=== PATIENT | female | born 1975 | race Caucasian/White ===

== ENCOUNTER 2022-01-29 13:27 | Emergency (ER) | payer MEDICAID ==
[~2022-01-29] VITALS: Ht 162.6 cm; Wt 87.1 kg
[~2022-01-29 13:27] MED LIST: ATEN50TA PO; ENAL2.5T7 PO; GABA300C10 PO
[2022-01-29] MEDS ORDERED: LORazepam 2MG/ML-1ML VIAL IV ONE (13:45)
[2022-01-29] MEDS ORDERED: SODIUM CHLORIDE 0.9% 1,000 ML IV ONE (13:45)
[2022-01-29 13:49] VITALS: BP 114/84
[2022-01-29 14:11] LABS: Basophils # (auto) 0 10 ^3/uL (0-0.2); Basophils % (auto) 0.5 % (0.0-2.0); Eosinophils # (auto) 0.1 10 ^3/uL (0-0.8); Eosinophils % (auto) 1.4 % (0.0-7.0); Hematocrit 39.4 % (36.0-46.0); Lymphocytes % (auto) 17.7 % (10.0-50.0); Mean Corpuscular Hemoglobin 28.3 pg (28.0-32.0); Mean Corpuscular Hgb Conc. 32.9 g/dL (32.0-36.0); Mean Corpuscular Volume 85.9 fL (80.0-100.0); Monocytes # (auto) 0.4 10 ^3/uL (0-1.3); Monocytes % (auto) 6.1 % (0.0-12.0); Neutrophils # (auto) 4.4 10 ^3/uL (1.6-8.6); Neutrophils % (auto) 74.3 % (37.0-80.0); Nucleated Red Blood Cells % 0.2 %; Red Blood Cells 4.59 10^6/uL (4.0-5.20); Red Cell Distribution Width 14.5 % (11.8-14.3); White Blood Cell 5.9 10^3/uL (4.4-10.8)
[2022-01-29 14:28] LABS: Albumin 3.3 g/dL (3.4-5.0); BUN/Creatinine Ratio 12.7; Magnesium 2.2 mg/dL (1.6-2.6); Potassium 3.6 mmol/L (3.5-5.1)
[2022-01-29 14:30] LABS: Bilirubin, Total 0.3 mg/dL (0.2-1.0); Total Protein 6.7 g/dL (6.4-8.2)
[2022-01-29 15:39] LABS: Urine Bacteria FEW /hpf (None Seen); Urine Blood Negative /uL (Negative); Urine Specific Gravity 1.004 (1.001-1.035); Urine WBC 1 /hpf (0 - 5)
[2022-01-29] MEDS ORDERED: IOHEXOL 300 MG/ML 100ML BOTTLE IJ ONE (15:45)
[2022-01-29] MEDS ORDERED: HYDR-4902 PO (17:08)
== END 2022-01-29 19:37 | disposition home or self-care (01) ==
LOC: ER 13:27 → EDBD 13:27 → ER 19:37
DX: N20.0 Calculus of kidney (principal); R42 Dizziness and giddiness; I10 Essential (primary) hypertension; F17.210 Nicotine dependence, cigarettes, uncomplicated; Z79.899 Other long term (current) drug therapy; Z88.8 Allergy status to other drugs, medicaments and biological substances
CPT/HCPCS: 36415; 74177; 80053; 81001; 83690; 83735; 84484; 84702; 85025; 93005; 96360; 99285; J7030; Q9967

== ENCOUNTER 2022-02-08 22:51 | Emergency (ER) | payer MEDICAID ==
[~2022-02-08] VITALS: Ht 165.1 cm; Wt 86.2 kg
[~2022-02-08 22:51] MED LIST changes: +HYDR-4902 PO
[2022-02-09 07:10] VITALS: BP 112/74
== END 2022-02-09 08:33 | disposition home or self-care (01) ==
LOC: ER 22:51 → EDBD 22:51 → ER 02-09 08:15
DX: F31.9 Bipolar disorder, unspecified (principal); F41.9 Anxiety disorder, unspecified; I10 Essential (primary) hypertension; F17.210 Nicotine dependence, cigarettes, uncomplicated; Z79.899 Other long term (current) drug therapy; Z88.8 Allergy status to other drugs, medicaments and biological substances

== ENCOUNTER 2022-11-03 11:27 | Inpatient (IN) | payer MEDICAID ==
[~2022-11-03] VITALS: Ht 162.6 cm; Wt 68.0 kg
[2022-11-03] MEDS ORDERED: SODIUM CHLORIDE 0.9% 1,000 ML IV ONE (12:00)
[2022-11-03 12:38] LABS: Albumin 3.3 g/dL (3.4-5.0); Calcium 8.3 mg/dL (8.5-10.1); Magnesium 1.9 mg/dL (1.6-2.6); Potassium 4.3 mmol/L (3.5-5.1)
[2022-11-03 12:41] LABS: BUN/Creatinine Ratio 12.6; Bilirubin, Total 0.9 mg/dL (0.2-1.0); Total Protein 6.2 g/dL (6.4-8.2)
[2022-11-03 12:47] LABS: Basophils # (auto) 0 10 ^3/uL (0-0.2); Eosinophils # (auto) 0 10 ^3/uL (0-0.8); Hematocrit 39.5 % (36.0-46.0); Hemoglobin 13.2 g/dL (12.2-16.2); Lymphocytes # (auto) 0.4 10 ^3/uL (0.4-5.4); Lymphocytes % (auto) 1.8 % (10.0-50.0); Mean Corpuscular Hemoglobin 28.5 pg (28.0-32.0); Mean Corpuscular Hgb Conc. 33.4 g/dL (32.0-36.0); Mean Corpuscular Volume 85.4 fL (80.0-100.0); Monocytes # (auto) 1.3 10 ^3/uL (0-1.3); Monocytes % (auto) 6.7 % (0.0-12.0); Neutrophils # (auto) 18.5 10 ^3/uL (1.6-8.6); Neutrophils % (auto) 91.5 % (37.0-80.0); Red Blood Cells 4.63 10^6/uL (4.0-5.20); Red Cell Distribution Width 14.8 % (11.8-14.3); White Blood Cell 20.2 10^3/uL (4.4-10.8)
[2022-11-03] MEDS ORDERED: PIPERACILLIN-TAZOB 3.375GM 100 ML IV ONE (16:00)
[2022-11-03] MEDS ORDERED: MORPHINE SULFATE INJ 2 MG/ml SYRG IV PRN (19:00)
[2022-11-03] MEDS ORDERED: VANCOMYCIN PER PHARMACY 0 MG IV SCH (19:00)
[2022-11-03] MEDS ORDERED: LORazepam 0.5 MG TAB PO PRN (19:00)
[2022-11-03] MEDS: SODIUM CHLORIDE 0.9% 1,000 ML IV SCH (19:00)
[2022-11-03] MEDS ORDERED: ACETAMINOPHEN 325 MG TAB PO PRN (19:00)
[2022-11-03] MEDS ORDERED: VANCOMYCIN 1GM/250ML 250 ML IV SCH (19:00)
[2022-11-03] MEDS ORDERED: TEMAZEPAM 15 MG CAP PO PRN (19:00)
[2022-11-03] MEDS ORDERED: MAALOX PLUS or MAALOX 30 ML PO PRN (19:00)
[2022-11-03] MEDS ORDERED: ONDANSETRON HCL 4 MG/2 ML VIAL IV PRN (19:00)
[2022-11-03] MEDS ORDERED: DOCUSATE SOD 100 MG CAP PO PRN (19:00)
[2022-11-03] MEDS ORDERED: VANCOMYCIN 1GM/250ML 250 ML IV ONE (21:45)
[2022-11-03] MEDS: PIPERACILLIN-TAZOB 3.375GM 100 ML IV SCH (22:00)
[2022-11-03] MEDS: IPRATROPIUM BROM 0.5 MG/2.5ML INH SOL NEB SCH (22:08)
[2022-11-03] MEDS: ALBUTEROL MEDNEB 2.5 mg/3ml NEB NEB SCH (22:08)
[2022-11-03] MEDS: HYDROcodone-ACET 5/325MG TAB PO PRN (22:32)
[2022-11-03 22:45] VITALS: BP 92/57
[2022-11-04] MEDS ORDERED: NICOTINE 14 MG/24HR TOPICAL PATCH TD ONE (02:30)
[2022-11-04] MEDS: PIPERACILLIN-TAZOB 3.375GM 100 ML IV SCH ×2 (06:26→14:25)
[2022-11-04] MEDS: IPRATROPIUM BROM 0.5 MG/2.5ML INH SOL NEB SCH ×4 (07:17→18:03)
[2022-11-04] MEDS: ALBUTEROL MEDNEB 2.5 mg/3ml NEB NEB SCH ×4 (07:17→18:03)
[2022-11-04 07:20] LABS: BUN/Creatinine Ratio 24.2; Calcium 8.1 mg/dL (8.5-10.1); Potassium 3.9 mmol/L (3.5-5.1)
[2022-11-04 08:25] LABS: Basophils # (auto) 0 10 ^3/uL (0-0.2); Basophils % (auto) 0.1 % (0.0-2.0); Eosinophils # (auto) 0 10 ^3/uL (0-0.8); Eosinophils % (auto) 0.2 % (0.0-7.0); Hematocrit 36.6 % (36.0-46.0); Hemoglobin 12.4 g/dL (12.2-16.2); Lymphocytes # (auto) 1.4 10 ^3/uL (0.4-5.4); Lymphocytes % (auto) 7.8 % (10.0-50.0); Mean Corpuscular Hemoglobin 28.5 pg (28.0-32.0); Mean Corpuscular Hgb Conc. 33.7 g/dL (32.0-36.0); Mean Corpuscular Volume 84.6 fL (80.0-100.0); Monocytes # (auto) 1.4 10 ^3/uL (0-1.3); Monocytes % (auto) 7.8 % (0.0-12.0); Neutrophils # (auto) 15.4 10 ^3/uL (1.6-8.6); Neutrophils % (auto) 84.1 % (37.0-80.0); Red Blood Cells 4.33 10^6/uL (4.0-5.20); Red Cell Distribution Width 14.9 % (11.8-14.3); White Blood Cell 18.3 10^3/uL (4.4-10.8)
[2022-11-04] MEDS ORDERED: VANCOMYCIN 1GM/250ML 250 ML IV ONE (08:45)
[2022-11-04] MEDS: HYDROcodone-ACET 5/325MG TAB PO PRN (09:15)
[2022-11-04 09:23] VITALS: BP 100/62
[2022-11-04] MEDS ORDERED: IBUP800T27 PO (09:49)
[2022-11-04] MEDS ORDERED: SERT25TA84 PO (09:49)
[2022-11-04] MEDS ORDERED: ALPR0.5T PO (09:49)
[2022-11-04] MEDS ORDERED: NICOTINE 14 MG/24HR TOPICAL PATCH TD SCH (10:00)
[2022-11-04] MEDS: SODIUM CHLORIDE 0.9% 1,000 ML IV SCH (11:40)
[2022-11-04 13:00] VITALS: BP 93/56
[2022-11-04] MEDS ORDERED: guaiFENesin-DM 100/10mg/5ml SYR PO PRN (16:30)
[2022-11-04] MEDS ORDERED: LEVO500T31 PO (16:32)
[2022-11-04] MEDS ORDERED: DEXT1SYP9 PO (16:32)
[2022-11-04] MEDS ORDERED: levoFLOXacin 500 MG TAB PO SCH (16:45)
[2022-11-04 17:00] VITALS: BP 96/62
[2022-11-04 17:53] VITALS: BP 99/69
[2022-11-04] MEDS ORDERED: VANCOMYCIN 1GM/250ML 250 ML IV SCH (21:00)
== END 2022-11-04 19:00 | disposition home or self-care (01) | DRG 139 ==
LOC: ER 11:27 → EDBD 11:27 → TELE 19:25 → TELE-WESTW 11-04 08:18
PROVIDERS: ADMIT Hospitalist; ATTEND Internal Medicine
DX: J18.9 Pneumonia, unspecified organism (principal); F17.210 Nicotine dependence, cigarettes, uncomplicated; F20.9 Schizophrenia, unspecified; I10 Essential (primary) hypertension; I48.91 Unspecified atrial fibrillation; F32.A Depression, unspecified; Z20.822 Contact with and (suspected) exposure to COVID-19; F41.9 Anxiety disorder, unspecified; F19.10 Other psychoactive substance abuse, uncomplicated; Z98.51 Tubal ligation status
CPT/HCPCS: 36415; 71045; 80048; 80053; 83605; 83735; 84484; 85025; 87040; 87426; 87804; 94640; 96361; 96365; 96366; G0378; J2543

== ENCOUNTER 2022-11-18 15:14 | Emergency (ER) | payer MEDICAID ==
[~2022-11-18] VITALS: Ht 175.3 cm; Wt 70.4 kg
[~2022-11-18 15:14] MED LIST changes: +ALPR0.5T PO; -ATEN50TA PO; +DEXT1SYP9 PO; -ENAL2.5T7 PO; -HYDR-4902 PO; +LEVO500T31 PO; +SERT25TA84 PO
[2022-11-18] MEDS ORDERED: ACETAMINOPHEN 325 MG TAB PO ONE (18:45)
[2022-11-18 19:44] VITALS: BP 100/66
== END 2022-11-18 19:45 | disposition home or self-care (01) ==
LOC: ER 15:14
DX: S30.0XXA Contusion of lower back and pelvis, initial encounter (principal); S09.8XXA Other specified injuries of head, initial encounter; R42 Dizziness and giddiness; Z88.8 Allergy status to other drugs, medicaments and biological substances; Y08.89XA Assault by other specified means, initial encounter; Y93.89 Activity, other specified; Y92.89 Other specified places as the place of occurrence of the external cause; Y99.8 Other external cause status
CPT/HCPCS: 70450; 70486; 72125; 72131

== ENCOUNTER 2022-11-20 16:57 | Emergency (ER) | payer MEDICAID ==
[~2022-11-20] VITALS: Ht 162.6 cm; Wt 75.0 kg
[2022-11-20 23:30] VITALS: BP 136/99
== END 2022-11-20 23:34 | disposition home or self-care (01) ==
LOC: ER 16:57
DX: F32.9 Major depressive disorder, single episode, unspecified (principal); F41.9 Anxiety disorder, unspecified; E78.5 Hyperlipidemia, unspecified; I10 Essential (primary) hypertension; F17.210 Nicotine dependence, cigarettes, uncomplicated; F12.10 Cannabis abuse, uncomplicated; F15.10 Other stimulant abuse, uncomplicated; Z98.51 Tubal ligation status; Z87.442 Personal history of urinary calculi

== ENCOUNTER 2023-03-04 17:01 | Emergency (ER) | payer MEDICAID ==
[~2023-03-04] VITALS: Ht 167.6 cm; Wt 73.0 kg
[2023-03-04 20:27] VITALS: BP 125/83
[2023-03-04] MEDS ORDERED: IBUPROFEN 800 MG TAB PO ONE (20:30)
[2023-03-05] MEDS ORDERED: NALOXONE HCL 1MG/ML 2ML SYRINGE ONE (01:12)
== END 2023-03-04 20:28 | disposition home or self-care (01) ==
LOC: EDBD 17:01 → ER 17:01 → EDUNIT# 17:01 → ER 20:28
DX: H92.03 Otalgia, bilateral (principal); E78.5 Hyperlipidemia, unspecified; I10 Essential (primary) hypertension; F17.210 Nicotine dependence, cigarettes, uncomplicated; F12.10 Cannabis abuse, uncomplicated; F15.10 Other stimulant abuse, uncomplicated; Z87.442 Personal history of urinary calculi; Z88.1 Allergy status to other antibiotic agents; Z88.6 Allergy status to analgesic agent; Z59.00 Homelessness unspecified; Z98.51 Tubal ligation status

== ENCOUNTER 2023-03-05 00:12 | Emergency (ER) | payer MEDICAID, OTHER ==
[~2023-03-05] VITALS: Ht 162.6 cm; Wt 80.0 kg
[2023-03-05] MEDS ORDERED: NALOXONE HCL 1MG/ML 2ML SYRINGE IM ONE (01:30)
[2023-03-05 08:15] VITALS: BP 115/83
[2023-03-05] MEDS ORDERED: ACETAMINOPHEN 325 MG TAB PO ONE (08:30)
== END 2023-03-05 09:22 | disposition home or self-care (01) ==
LOC: ER 00:12 → EDBD 00:12 → ER 09:22
DX: S06.9X9A Unspecified intracranial injury with loss of consciousness of unspecified duration, initial encounter (principal); S01.01XA Laceration without foreign body of scalp, initial encounter; S01.81XA Laceration without foreign body of other part of head, initial encounter; M54.2 Cervicalgia; F41.9 Anxiety disorder, unspecified; F32.9 Major depressive disorder, single episode, unspecified; E78.5 Hyperlipidemia, unspecified; I10 Essential (primary) hypertension; F20.9 Schizophrenia, unspecified; F12.10 Cannabis abuse, uncomplicated; F15.10 Other stimulant abuse, uncomplicated; Z87.891 Personal history of nicotine dependence; Z87.442 Personal history of urinary calculi; Z88.8 Allergy status to other drugs, medicaments and biological substances; W08.XXXA Fall from other furniture, initial encounter; Y93.89 Activity, other specified; Y92.830 Public park as the place of occurrence of the external cause; Y99.8 Other external cause status
CPT/HCPCS: 70450; 70486; 72125; 96372

== ENCOUNTER 2023-10-21 06:14 | Emergency (ER) | payer MEDICAID ==
[~2023-10-21] VITALS: Ht 162.6 cm; Wt 70.0 kg
[~2023-10-21 06:14] MED LIST changes: +GABA-1250 PO; -GABA300C10 PO
[2023-10-21 07:24] VITALS: BP 118/89; PULSE 102; RESP 18; TEMP 97.8; O2SAT 98
[2023-10-21] MEDS ORDERED: PROMETHAZINE-DM 5 ML ORAL SYRUP PO ONE (07:30)
[2023-10-21] MEDS ORDERED: PROM1SOL4 PO (07:32)
== END 2023-10-21 07:49 | disposition home or self-care (01) ==
LOC: EDBD 06:14 → ER 06:14
DX: R05.1 Acute cough (principal); I10 Essential (primary) hypertension; E78.5 Hyperlipidemia, unspecified; F41.9 Anxiety disorder, unspecified; F32.9 Major depressive disorder, single episode, unspecified; F20.9 Schizophrenia, unspecified; F17.210 Nicotine dependence, cigarettes, uncomplicated; F15.90 Other stimulant use, unspecified, uncomplicated; Z87.442 Personal history of urinary calculi; Z98.890 Other specified postprocedural states
CPT/HCPCS: 71045

== ENCOUNTER 2023-12-13 06:09 | Emergency (ER) | payer MEDICAID ==
[~2023-12-13] VITALS: Ht 162.6 cm; Wt 55.4 kg
[~2023-12-13 06:09] MED LIST changes: +PROM1SOL4 PO
[2023-12-13] MEDS: ACETAMINOPHEN 500 MG TAB PO ONE (06:36)
[2023-12-13] MEDS: KETOROLAC TROMETH 60MG/2ML VIAL IM ONE (06:37)
[2023-12-13 07:22] LABS: Rapid Influenza A Negative (Negative); Rapid Influenza B Negative (Negative)
[2023-12-13 07:26] LABS: COVID19 ANTIGEN SOFIA FIA POSITIVE (NEGATIVE)
[2023-12-13 07:29] VITALS: BP 168/100; PULSE 74; RESP 18; O2SAT 98
[2023-12-13] MEDS ORDERED: LORA10CA PO (08:43)
[2023-12-13] MEDS ORDERED: ACET500T58 PO (08:43)
[2023-12-13 08:46] VITALS: TEMP 98.4
== END 2023-12-13 08:58 | disposition home or self-care (01) ==
LOC: ER 06:09
DX: U07.1 COVID-19 (principal); I10 Essential (primary) hypertension; E78.5 Hyperlipidemia, unspecified; F17.210 Nicotine dependence, cigarettes, uncomplicated; Z59.00 Homelessness unspecified; Z79.2 Long term (current) use of antibiotics; Z79.899 Other long term (current) drug therapy; Z88.8 Allergy status to other drugs, medicaments and biological substances
CPT/HCPCS: 36415; 87426; 87804; 96372; 99283; J1885

== ENCOUNTER 2024-08-15 22:07 | Emergency (ER) | payer MEDICAID ==
[~2024-08-15] VITALS: Ht 157.5 cm; Wt 54.5 kg
[~2024-08-15 22:07] MED LIST changes: +ACET500T58 PO; +LORA10CA PO
[2024-08-15] MEDS: HALOPERIDOL LACTATE 5 MG/ML INJ VIAL IM ONE (22:58)
[2024-08-15 23:06] VITALS: PULSE 79; RESP 9; O2SAT 97
[2024-08-16] MEDS: MIDAZOLAM HCL 5 MG/ML-1ML VIAL IM ONE (02:32)
[2024-08-16 03:44] LABS: Basophils # (auto) 0 10 ^3/uL (0-0.2); Basophils % (auto) 0.6 % (0.0-2.0); Eosinophils # (auto) 0.2 10 ^3/uL (0-0.8); Eosinophils % (auto) 5.5 % (0.0-7.0); Hematocrit 37.4 % (36.0-46.0); Hemoglobin 12.4 g/dL (12.2-16.2); Lymphocytes # (auto) 1.3 10 ^3/uL (0.4-5.4); Lymphocytes % (auto) 29.4 % (10.0-50.0); Mean Corpuscular Hemoglobin 29.4 pg (28.0-32.0); Monocytes # (auto) 0.4 10 ^3/uL (0-1.3); Monocytes % (auto) 9.7 % (0.0-12.0); Neutrophils # (auto) 2.5 10 ^3/uL (1.6-8.6); Neutrophils % (auto) 54.8 % (37.0-80.0); Platelet Count (auto) 189 10^3/uL (140-450); Red Cell Distribution Width 13.5 % (11.8-14.3); White Blood Cell 4.5 10^3/uL (4.4-10.8)
[2024-08-16 03:54] LABS: Chloride 112 mmol/L (98-107); Potassium 3.3 mmol/L (3.5-5.1); Sodium 144 mmol/L (136-145)
[2024-08-16 03:55] LABS: Anion Gap 4 (5-15); Carbon Dioxide 28 mmol/L (20-31)
[2024-08-16 03:56] LABS: Calcium 9.3 mg/dL (8.7-10.4)
[2024-08-16 04:00] LABS: Glucose 97 mg/dL (74-106)
[2024-08-16 04:01] LABS: BUN/Creatinine Ratio 16.1 (10.0-20.0); Blood Alcohol < 3.0 mg/dL (<10); Blood Urea Nitrogen 10 mg/dL (9-23)
[2024-08-16 04:02] LABS: Acetaminophen < 2.0 UG/ML (10.0-20.0)
[2024-08-16 04:09] LABS: Salicylate < 3.0 mg/dL (-30)
[2024-08-16 08:00] VITALS: PULSE 71; RESP 17; TEMP 98.3; O2SAT 97
[2024-08-16 11:19] VITALS: BP 121/82; PULSE 77; RESP 15; O2SAT 97
== END 2024-08-16 11:59 | disposition home or self-care (01) ==
LOC: EDSEX 22:07 → ER 22:07 → EDBD 22:07 → ER 08-16 11:59
DX: F29 Unspecified psychosis not due to a substance or known physiological condition (principal); M79.642 Pain in left hand; I10 Essential (primary) hypertension; F41.9 Anxiety disorder, unspecified; E78.5 Hyperlipidemia, unspecified; F20.9 Schizophrenia, unspecified; F31.9 Bipolar disorder, unspecified; F17.210 Nicotine dependence, cigarettes, uncomplicated; F15.90 Other stimulant use, unspecified, uncomplicated; Z98.890 Other specified postprocedural states; Z59.00 Homelessness unspecified
CPT/HCPCS: 36415; 73130; 80048; 80320; 80329; 85025; 96372; 99285; J1630; J2250